=== PATIENT | female | born 1965 | race Caucasian/White ===

== ENCOUNTER → 2016-09-27 | Outpatient (CLI) | payer OTHER ==
[~2016-09-27] MED LIST: ACIPHEX 20 MG T20 MG OR; ALPARAZOLAM0.5 MG PO; CEPHADYN; FLEXERIL10 MG PO; IBU-8800 MG PO; LEVOCETIRIZINE D5 MG PO; LEXAPRO 20 MG T20 MG PO; LORTAB 5/500 501 TAB PO; MAXALT10 MG PO; METOPROLOL SUCC25 M1 PO; METOPROLOL SUCC50 M1 PO; Mobic7.5 MG PO; SINGULAIR10 MG PO; TOPIRAMATE 25MG25 MG PO
[2016-09-27 18:13] LABS: HEMOGLOBIN 13.1 g/dL (12.2-16.2); LYMPH # 2.8 K/mm3 (0.7-4.5); LYMPH % 25.4 % (10-50.0)
[2016-09-27 18:47] LABS: BUN 10 mg/dL (7-18)
[2016-09-27 18:48] LABS: GFR (ESTIMATED) 76 ML/MIN (59-)
== END ==
LOC: LAB 17:55
PROVIDERS: Family Medicine
DX: R60.9 Edema, unspecified (principal)